=== PATIENT | male | born 1955 | race Caucasian/White ===

== ENCOUNTER 2017-04-06 07:37 | Emergency (ER) | payer OTHER ==
[~2017-04-06] VITALS: Ht 162.6 cm; Wt 79.4 kg
[2017-04-06 07:41] VITALS: BP 142/84
== END 2017-04-06 08:24 | disposition home or self-care (01) ==
LOC: ED 07:37
DX: K08.89 Other specified disorders of teeth and supporting structures (principal)
CPT/HCPCS: J0690